=== PATIENT | female | born 1955 | race Caucasian/White ===

== ENCOUNTER 2019-02-22 00:22 | Emergency (ER) | payer OTHER ==
[2019-02-22 00:45] VITALS: BP 114/70; PULSE 112; TEMP 99.2; BMI 26.6
--- NOTE | 2019-02-22 03:03 | PDOC ---
Attending Attestation - Resident Resident Name: Arminda Eden - ED Attending Attestation I have performed the following: I have examined & evaluated the patient, The case was reviewed & discussed with the resident, I agree w/resident's findings & plan - HPI HPI: 02/22/19 04:35 see resident hpi - Physicial Exam PE: 02/22/19 04:36 agree with resident exam - Medical Decision Making 02/22/19 04:36 63-year-old female with a history of anxiety presents stating she is uncomfortable in the house alone after recently moving She does have a prescription for Xanax but decided to take the ambulance to the emergency department instead She is sitting comfortably in bed and has ambulated without difficulty Patient given 0.25 of Xanax in the department She has requested to be held in the department until daylight hours She is alert oriented x4 with no homicidal or suicidal ideation and does not require urgent/emergent psychiatric evaluation
--- NOTE | 2019-02-22 03:17 | PDOC ---
History of Present Illness - General Chief Complaint: Psychiatric Stated Complaint: FEELING ANXIOUS - History of Present Illness Initial Comments: Nola Blevins is a 63yo woman with a history of HTN and anxiety who presents reporting an anxiety attack at home today. She says that usually she can "talk her self out of" her anxiety, but today it was overwhelming. She is unable to clarify what she was feeling when she had the anxiety. She tried to work through the anxiety all day. Her family came to visit during the day, and her symptoms improved slightly, but the anxiety worsened in the evening when she was home alone. She states that she has Xanax at home for her anxiety but never takes it. She came to the ED to request medication and to "be around people" Ms Blevins does endorse drinking 4 glasses of wine per day as well as smoking 2 PPD for many years. Past History - Past Medical History Allergies/Adverse Reactions: Allergies Allergy/AdvReac Type Severity Reaction Status Date / Time Penicillins Allergy Mild Rash Verified 02/22/19 00:35 COPD: No HTN: Yes Psychiatric Problems: Yes - Psycho Social/Smoking Cessation Hx Smoking History: Current every day smoker Have you smoked in the past 12 months: Yes Number of Cigarettes Smoked Daily: 30 Information on smoking cessation initiated: No Hx Alcohol Use: Yes Drug/Substance Use Hx: No Review of Systems - Review of Systems Comments:: General: No fevers, no chills, no weight or appetite change, no malaise HEENT: No changes in vision, no changes in hearing, no congestion, no sore throat CV: No chest pain, no palpitations, no LE edema Pulm: No SOB, no cough, no wheezing GI: No nausea or vomiting, no change in bowel habits, no melena : No frequency, no urgency, no dysuria Musc: No back pain, no joint swelling, no recent injury Skin: No rash, no lesions, no erythema Endo: No excessive thirst, no heat/cold intolerance Heme: No unusual bruising or bleeding, no swollen glands Neuro: No syncope, no numbness/tingling, no focal weakness Vasc: No claudication Psych: See HPI *Physical Exam - Vital Signs Last Vital Signs Temp Pulse Resp BP Pulse Ox 99.2 F 112 H 24 H 114/70 96 02/22/19 00:30 02/22/19 00:30 02/22/19 00:30 02/22/19 00:30 02/22/19 00:30 - Physical Exam General: Comfortable, no acute distress HEENT: PERRL, EOMI, MMM, voice normal, normal neck ROM, no LAD Cards: RRR, no murmur appreciated Pulm: Comfortable on room air, clear to auscultation bilaterally Abd: Soft, nontender, nondistended Ext: Atraumatic. No LE edema. ROM intact. WWP Skin: Normal color, no rashes or lesions Neuro: A&Ox3, CN grossly intact, normal speech, motor/sensory grossly intact and symmetric Psych: Mood appropriate to situation Medical Decision Making - Medical Decision Making 02/22/19 03:16 Nola Blevins is a 63yo woman with a history of HTN and anxiety who presents reporting an anxiety attack at home today; she did not take her home Xanax. She endorses drinking 4 glasses of wine per day, including today, and smoking 2 packs of cigarettes per day. - Currently appears asymptomatic - Giving home xanax, will reassess 02/22/19 05:05 - Visualized ambulating with steady gait in the ED - Confirmed that family lives nearby. Will discharge home with family - Strongly encouraged to take her home medications and follow up with her PMD for continued anxiety Discussed with Dr David Eden PGY2 Discharge - Discharge Information Problems reviewed: Yes Clinical Impression/Diagnosis: Anxiety Condition: Stable Disposition: HOME - Admission No - Follow up/Referral Referrals: ON STAFF,NOT [Primary Care Provider] - - Patient Discharge Instructions Patient Printed Discharge Instructions: DI for Anxiety -- Adult Additional Instructions: Discharge Instructions: You were seen in the emergency department for anxiety at home. You were given an anxiety medication in the ED. Continue to take all of your home medications as prescribed. Use your home xanax as indicated for continued symptoms. Follow up with your regular doctor within the next 2-3 days. Seek immediate medical care for worsening symptoms or for any medical emergency. - Post Discharge Activity
[2019-02-22] MEDS ORDERED: ALPRAZolam 0.25 MG TABLET PO ONE (03:26)
[2019-02-22] MEDS ORDERED: ALPRAZolam 0.25 MG TABLET ONE (03:28)
--- NOTE | 2019-02-22 06:35 | PDOC ---
*Physical Exam - Vital Signs Last Vital Signs Temp Pulse Resp BP Pulse Ox 99.2 F 112 H 24 H 114/70 96 02/22/19 00:30 02/22/19 00:30 02/22/19 00:30 02/22/19 00:30 02/22/19 00:30 - Physical Exam 12A 02/22/19 06:32 ED Treatment Course - Medications Given in the ED: ED Medications Discontinued Medications Generic Name Dose Route Start Last Admin Trade Name Khushboo ADAMS Reason Stop Dose Admin Alprazolam 0.25 mg 02/22/19 03:26 02/22/19 03:31 Xanax - PO 02/22/19 03:27 0.25 mg ONCE ONE Administration Medical Decision Making - Medical Decision Making Patient's daughter called the ED and indicated that her mother might need a detox visit for her drinking problem. Patient agreed to detox. Will DC her at 7: 30 to detox. 02/22/19 06:34 Discharge - Discharge Information Problems reviewed: Yes Clinical Impression/Diagnosis: Anxiety, ETOH abuse Condition: Stable Disposition: HOME - Follow up/Referral Referrals: ON STAFF,NOT [Primary Care Provider] - - Patient Discharge Instructions Patient Printed Discharge Instructions: DI for Anxiety -- Adult Additional Instructions: Discharge Instructions: You were seen in the emergency department for anxiety at home. You were given an anxiety medication in the ED. Continue to take all of your home medications as prescribed. Use your home xanax as indicated for continued symptoms. Follow up with your regular doctor within the next 2-3 days. Seek immediate medical care for worsening symptoms or for any medical emergency. - Post Discharge Activity
== END 2019-02-22 06:43 | disposition home or self-care (01) ==
LOC: JER 00:22
DX: F41.9 Anxiety disorder, unspecified (principal); I10 Essential (primary) hypertension; Z88.0 Allergy status to penicillin; F17.210 Nicotine dependence, cigarettes, uncomplicated; F99 Mental disorder, not otherwise specified
CPT/HCPCS: 99281-25

== ENCOUNTER 2019-02-22 13:49 | Emergency (ER) | payer OTHER ==
[2019-02-22 14:09] VITALS: BMI 29.2
--- NOTE | 2019-02-22 15:04 | PDOC ---
History of Present Illness - General Chief Complaint: Pain Stated Complaint: ANXIETY Time Seen by Provider: 02/22/19 14:53 - History of Present Illness Initial Comments: 02/22/19 15:04 CHIEF COMPLAINT: anxiety HISTORY OF PRESENT ILLNESS: 63 yo F presents to ED with anxiety. Patient was brought to ED by daughter for concerns of alcohol abuse. Patient was evaluated for inpatient rehab but did not meet intake criteria. Patient came back to ER stating she was having leg cramping earlier that has now resolved. No recent travel or sick contacts. PAST MEDICAL HISTORY: Denies past medical history FAMILY HISTORY: Denies SOCIAL HISTORY: Denies tobacco, alcohol, illicit drug use. SURGICAL HISTORY: Denies ALLERGIES: No known drug allergies REVIEW OF SYSTEMS General/Constitutional: Denies fever or chills. Denies weakness, weight change. HEENT: Denies change in vision. Denies ear pain or discharge. Denies sore throat. Cardiovascular: Denies chest pain or shortness of breath. Respiratory: Denies cough, wheezing, or hemoptysis. Gastrointestinal: Denies nausea, vomiting, diarrhea or constipation. Denies rectal bleeding. Genitourinary: Denies dysuria, frequency, or change in urination. Musculoskeletal: Leg cramping earlier, now resolved. Denies joint or muscle swelling or pain. Denies neck or back pain. Skin and breasts: Denies rash or easy bruising. Neurologic: Denies headache, vertigo, loss of consciousness, or loss of sensation. Psychiatric: "I feel anxious because I don't have a ride home to [place] and my daughter is angry with me." PHYSICAL EXAM General Appearance: Well-appearing, appropriately dressed. No apparent distress , no intoxication. HEENT: EOMI, PERRLA, normal ENT inspection, normal voice, TMs normal, pharynx normal. No conjunctival pallor. No photophobia, scleral icterus. Neck: Supple. Trachea midline. No tenderness, rigidity, carotid bruit, stridor , lymphadenopathy, or thyromegaly. Respiratory/Chest: Lungs CTAB. No shortness of breath, chest tenderness, respiratory distress, accessory muscle use. No crackles, rales, rhonchi, stridor , wheezing, dullness Cardiovascular: RRR. S1, S2. No JVD, murmur, bradycardia, tachycardia. Vascular Pulses: Dorsalis-Pedis (R): 2+, Dorsalis-Pedis (L): 2+ Gastrointestinal/Abdominal: Normal bowel sounds. Abdomen soft, non-distended. No tenderness or rebound tenderness. No organomegaly, pulsatile mass, guarding , hernia, hepatomegaly, splenomegaly. Lymphatic: No adenopathy, tenderness. Musculoskeletal/Extremities: Normal inspection. FROM of all extremities, normal capillary refill. Pelvis Stable. No CVA tenderness. No tenderness to extremities, pedal edema, swelling, erythema or deformity. Integumentary: Appropriate color, dry, warm. No cyanosis, erythema, jaundice or rash Neurologic: business applications analyst II-XII intact. Fully oriented, alert. Appropriate mood/affect. Motor strength 5/5. No appreciable EOM palsy, facial droop or sensory deficit. 02/22/19 16:39 Past History - Past Medical History Allergies/Adverse Reactions: Allergies Allergy/AdvReac Type Severity Reaction Status Date / Time Penicillins Allergy Mild Rash Verified 02/22/19 14:06 COPD: No HTN: Yes Psychiatric Problems: Yes - Psycho Social/Smoking Cessation Hx Smoking History: Current every day smoker Have you smoked in the past 12 months: Yes Number of Cigarettes Smoked Daily: 30 Information on smoking cessation initiated: No Hx Alcohol Use: Yes Drug/Substance Use Hx: No *Physical Exam - Vital Signs Last Vital Signs Temp Pulse Resp BP Pulse Ox 100 H 20 138/88 94 L 02/22/19 14:06 02/22/19 14:06 02/22/19 14:06 02/22/19 14:06 Medical Decision Making - Medical Decision Making 02/22/19 15:21 63 yo F presents to ED with anxiety and leg cramping. Patient states leg cramping has now resolved and is trying to get a ride home from her daughter. 02/22/19 15:24 Spoke with patient's daughter on the phone; daughter states that the patient has not left her home in 3 days and has only accepted wine deliveries for the past 3 days. Daughter states that the mother has been told multiple times to go to rehab to seek treatment for detox. Mother agrees to return to [facility] for rehab. 02/22/19 16:00 Social work arranged for patient to be admitted to inpatient rehab. Will dc to [facility]. Discharge - Discharge Information Problems reviewed: Yes Clinical Impression/Diagnosis: ETOH abuse, Anxiety Condition: Stable Disposition: TRANSFER ACUTE CARE/OTHER HOSP - Admission No - Follow up/Referral Referrals: Tc Soto MD [Staff Physician] - - Patient Discharge Instructions Patient Printed Discharge Instructions: DI for Alcohol Abuse - Post Discharge Activity
[2019-02-22 16:57] VITALS: BP 131/80; PULSE 97
== END 2019-02-22 16:57 | disposition short-term general hospital (02) ==
LOC: JER 13:49
DX: F10.10 Alcohol abuse, uncomplicated (principal); F41.9 Anxiety disorder, unspecified; Z88.0 Allergy status to penicillin
CPT/HCPCS: 99282-25